=== PATIENT | male | born 1975 | race Two or more races ===

== ENCOUNTER 2024-01-22 03:18 | Emergency (ER) | payer OTHER ==
[~2024-01-22] VITALS: Ht 170.2 cm; Wt 74.3 kg
[2024-01-22 07:28] VITALS: BP 116/77; PULSE 62; RESP 18; TEMP 98.3; O2SAT 96
[2024-01-22] MEDS ORDERED: BENZ200C64 PO (07:42)
[2024-01-22] MEDS ORDERED: PROM1SOL4 PO (07:42)
[2024-01-22] MEDS ORDERED: GUAI600T78 PO (07:42)
== END 2024-01-22 07:43 | disposition home or self-care (01) ==
LOC: ER 03:18
DX: R05.9 Cough, unspecified (principal)
CPT/HCPCS: 71046; 99283; J7030